=== PATIENT | female | born 1985 | race African-American/Black ===

== ENCOUNTER 2023-04-25 07:30 | Emergency (ER) | payer BC, SELFPAY | END 2023-04-25 07:46 | disposition home or self-care (01) | LOC: CSHERS 07:30 | DX: H10.9 Unspecified conjunctivitis (principal); K08.89 Other specified disorders of teeth and supporting structures | CPT/HCPCS: 99282 ==

== ENCOUNTER 2023-07-26 17:12 | Emergency (ER) | payer OTHER ==
[2023-07-26] MEDS ORDERED: Acetaminophen 500 MG TAB ONE (17:41)
== END 2023-07-26 17:50 | disposition home or self-care (01) ==
LOC: CSHERS 17:12
DX: J10.1 Influenza due to other identified influenza virus with other respiratory manifestations (principal)
CPT/HCPCS: 99283

== ENCOUNTER 2025-04-18 11:47 | Emergency (ER) | payer OTHER, SELFPAY ==
[2025-04-18] MEDS ORDERED: Proparacaine 0.5% Opth 15 ML BOT ONE (12:12)
[2025-04-18] MEDS ORDERED: Fluorescein Opthalmic Strip ONE (12:12)
[2025-04-18] MEDS ORDERED: Boostrix 0.5 ML (Tdap) VIAL (>/=7 yrs of age) ONE (12:27)
== END 2025-04-18 12:33 | disposition home or self-care (01) ==
LOC: CSHERS 11:47
DX: S05.01XA Injury of conjunctiva and corneal abrasion without foreign body, right eye, initial encounter (principal); W22.8XXA Striking against or struck by other objects, initial encounter; Z75.3 Unavailability and inaccessibility of health-care facilities
CPT/HCPCS: 90471; 90715